=== PATIENT | male | born 1965 | race Caucasian/White ===

== ENCOUNTER 2018-01-28 20:26 | Emergency (ER) | payer OTHER, SELFPAY ==
[2018-01-28 20:27] VITALS: BP 138/91; PULSE 78; RESP 16; TEMP 36.8; O2SAT 99; BMI 22.4
--- NOTE | 2018-01-28 20:45 | RAD_ITS ---
STUDY: X-RAY - RIGHT KNEE REASON FOR EXAM: Male, 52 years old. Pain, unknown injury TECHNIQUE: 3 view(s) of the knee. COMPARISON: None. FINDINGS: Normal visualized distal femur. Normal visualized proximal tibia and fibula. Normal proximal tibiofibular articulation. Normal medial femorotibial compartment. Normal lateral femorotibial compartment. Normal patellofemoral articulation. There is infrapatellar soft tissue swelling. RAD/Knee 3 Views IMPRESSION: Infrapatellar soft tissue swelling. The osseous structures are unremarkable. Electronically Signed: Kobe Guerrero MD at 21:06 EDT , Service support ,
--- NOTE | 2018-01-28 20:58 | US_ITS ---
STUDY: VENOUS DOPPLER ULTRASOUND - RIGHT LOWER EXTREMITY REASON FOR EXAM: Male, 52 years old. Right knee effusion, drain, now presenting with bruising and swelling TECHNIQUE: Ultrasound evaluation of the deep vein system to include gonzáles-scale imaging and compression was performed. Gonzáles-scale imaging and Doppler sonographic evaluation, including duplex spectral analysis and qualitative color flow sonography, was performed. COMPARISON: None. FINDINGS: Common Femoral Vein: Normal compression, spontaneity and augmentation. Normal color Doppler. Common Femoral Vein/Greater Saphenous Junction: Normal compression, no internal echoes are evident. Deep Femoral Vein: Not imaged Femoral Proximal: Normal compression, no internal echoes were noted. Femoral Middle: Normal compression, spontaneity and augmentation. Normal color Doppler. Femoral Distal: Normal compression, no internal echoes were noted. Popliteal Vein: Normal compression, spontaneity and augmentation. Normal color Doppler. Posterior Tibial Vein: Normal compression, no internal echoes were noted. Peroneal Vein: Normal compression, no internal echoes were noted. US/Venous Duplex Imag/Limited/Uni IMPRESSION: There is no evidence of deep venous thrombosis. Electronically Signed: Kobe Guerrero MD at 21:53 EDT , Service support ,
--- NOTE | 2018-01-28 21:24 | ED.DCSUM_ITS ---
- ER Visit Summary Date of Service: 01/28/18 Chief Complaint: Right knee swelling History of Present Illness: The patient is a 52 M with no primary care physician. 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 He is on his knees every day. States that 4 days ago he has a swollen area anterior surface of his right knee. He went to urgent care and they drained it with a needle. The placed him on prednisone 20 mg a day. They wrapped it. He felt that the wrapping was quite tight. He removed this. However, he reports that he noticed a bruise that began there the next day. Patient reports that he is an aching pain that is 3 out of 10 when he is kneeling. It is unchanged by walking. Is 1 out of 10 with elevation. He denies any acute trauma. No personal or family history of DVT. No recent travel. Review of systems is negative. Physical Examination: Vitals: Stable. Afebrile. General: Well-nourished and well-developed. Head: Normocephalic atraumatic. Neck: Supple, no lymphadenopathy. No JVD. Nontender. Cardiovascular: Regular rate and rhythm. No murmurs. Respiratory: No respiratory distress. Clear to auscultation bilaterally. Abdominal: Soft, nontender, nondistended, normal bowel sounds. No guarding, rebound, or peritoneal signs. Back: Nontender. Extremities: Small amount of swelling in the prepatellar bursa. Large amount of swelling in the superficial infrapatellar bursa. He has contusion to the medial side of his right thigh that extends skilled nursing up his thigh. There is light contusion to the anterior surface of his leg distal to his knee. This does extend down into his ankle and there are 2 erythematous areas on the medial sides of this with contusion by them as well. He has full range of motion of his knee with no difficulty or pain. Skin: Normal color, no rash. Neurologic: Alert and oriented ?3. Cranial nerves II through XII are intact. Normal strength and sensation. Psych: Normal affect. Test Results: X-ray shows infrapatellar soft tissue swelling. Doppler was negative. Emergency Department Course and Treatment: I had a prolonged discussion the patient about the likely cause of this. Given the fact that he has essentially no pain with it I suspect that this is really more of a chronic bursitis. I do not think that drainage or injection with steroids is in his best interest. Treatment Plan: Patient will be discharged naproxen. Instructed to wear knee pads. Follow-up with Dr. Howie Skaggs in 1 week if not improving. Return to the emergency department for any worsening symptoms. Disposition: To home in improved and stable condition. Impression: 1. Infrapatellar bursitis. This note was generated with [employer] dictation software. It may contain incorrect words, spelling, and punctuation that were not noted in review of the chart prior to signing ED Disposition - Plan for ED Patient: Chief Complaint: Lower Extremity Injury Instructions: ED Bursitis Prescriptions: Naproxen [Naprosyn] 500 mg PO BID #14 tablet Referrals: Howie Skaggs DO [STAFF PHYSICIAN] - 1 Week if not improving
[2018-01-28 21:43] VITALS: RESP 18
== END 2018-01-28 21:44 | disposition home or self-care (01) ==
LOC: ED 21:35
PROVIDERS: Emergency Provider Emergency Medicine
DX: M70.51 Other bursitis of knee, right knee (principal)
CPT/HCPCS: 73562; 93971; 99282

== ENCOUNTER 2019-12-14 08:38 | Emergency (ER) | payer OTHER, SELFPAY ==
[2019-12-14 08:39] VITALS: BP 151/96; PULSE 86; RESP 16; TEMP 36.1; O2SAT 98; BMI 22.3
--- NOTE | 2019-12-14 08:53 | EKG12_ITS ---
Test Reason : CP Blood Pressure : / mmHG Vent. Rate : 073 BPM Atrial Rate : 073 BPM P-R Int : 108 ms QRS Dur : 082 ms QT Int : 376 ms P-R-T Axes : 065 074 042 degrees QTc Int : 414 ms Sinus rhythm with short CA Otherwise normal ECG Confirmed by TARYN GOMEZ, CHRISTOPHER ([id number]), medical transcription editor CATHERINE CONNELL ([id number]) on 12/15/2019 1:25:42 PM Referred By: VASQUEZ Confirmed By:CHRISTOPHER CENTENO MD
--- NOTE | 2019-12-14 08:57 | ED.VIS.GEN ---
History of Present Illness Chief Complaint: Chest Pain Informant: Patient Onset: Days Context: Gradual Onset Timing: Intermittent Current Severity: Moderate Maximum Severity: Moderate Narrative: The patient is a 54-year-old male who is otherwise healthy and on no daily medications that presents to the emergency department with intermittent substernal chest pain and right arm pain. The patient states his symptoms began about 2 weeks ago. 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 He had no pain while exerting himself, but the next day, he noticed some mild tightness in his chest and in his right arm. He states it seemed to resolve on his own. Over the past week, he is noticed that he is gotten the pain a few more times. It is not brought on with exertion. He states he notices it most when he is at rest. He will feel mildly short of breath when it comes, but denies diaphoresis or nausea. He states if he is actually up and moving, he has no pain. He has no history of coronary vascular disease. He is otherwise been in his normal state of health. Prior similar symptoms: No Recent Illness/Hospitalization: No Past Medical History - Allergies and Home Meds Allergies/Adverse Reactions: Allergies Sulfa (Sulfonamide Antibiotics) Allergy (Verified 12/14/19 08:41) Gladys Primary Care Physician: Care Physician,No Primary [Primary Care Provider] - Prior records reviewed: Yes Past Medical History: None Surgical History: noncontributory Smoking Status: Never smoker Review of Systems General: Denies: Chills, Fever Eyes: Denies: Visual changes - bilaterally, Diplopia ENT: Denies: Rhinorrhea, Sore throat Cardiovascular: Reports: Chest pain. Denies: Palpitations Respiratory: Reports: Dyspnea. Denies: Cough, Dyspnea on exertion Gastrointestinal: Denies: Abdominal pain, Nausea, Vomiting, Diarrhea, Melena, Hematochezia Genitourinary: Denies: Dysuria, Hematuria, Frequency Musculoskeletal: Denies: Back pain, Extremity Pain Skin: Denies: Rash, Wounds Neurological: Denies: Headache, Weakness, Numbness Physical Exam Vital Signs/Narrative: Vital Signs Temp Pulse Resp BP Pulse Ox 12/14/19 08:39 97.0 F L 86 16 151/96 H 98 Inital Vital Signs reviewed: Yes General: Well nourished, Well developed, No Acute Distress Head: Normocephalic, Atraumatic Eyes: Perrl, EOMI ENT: Moist mucous membranes, No rhinorrhea Neck: Supple, Nontender Cardiovascular: Regular rate, Regular rhythm, No murmurs Respiratory: No distress, CTA bilaterally, Chest nontender Abdomen: Soft, Nontender, Nondistended, Normal bowel sounds Back: Nontender, Normal Inspection Extremities: Nontender, No edema Skin: Normal color, No rash Neurological: Alert, Oriented x3, Cranial nerves II-XII grossly intact, Normal Strength, Normal Sensation Psychological: Normal affect, Normal Mood Diagnostic/Tx/Re-eval Chest X-Ray - ED: 2 View, Normal, Heart, Lungs, Mediastinum - Rhythm Strip Rhythm Strip: Sinus Rhythm Rate: 70 Ectopy: None - EKG Initial EKG Interpretation: Sinus Rhythm, No Acute Injury Pattern Prior: Unchanged - Medical Decision Making The patient presents to the emergency department with intermittent chest tightness that is exacerbated by rest and relieved with exertion. It is nonradiating. EKG was obtained on patient arrival. Was sinus rhythm without acute ischemic change. Was unchanged from prior. Screening labs were obtained. The patient's cardiac enzymes were negative. The patient has a heart score of 2. D-dimer was negative. Chest x-ray was unremarkable. After long conversation, the patient was comfortable with plan for repeat troponin testing. I do feel as long as this is negative, the patient can be safely discharged with outpatient follow-up. My suspicion for acute coronary syndrome is very low given the chronicity of his symptoms and the fact that they are relieved with exertion. He is comfortable with this plan of care. Impression 1. Atypical chest pain ED Disposition - Plan for ED Patient: Instructions: ED Chest Pain Atypical Unkn Cause Referrals: Care Physician,No Primary [Primary Care Provider] -
[2019-12-14] MEDS: Aspirin 81 MG TAB.CHEW 324 MG PO (09:03)
--- NOTE | 2019-12-14 09:06 | RAD_ITS ---
STUDY: X-RAY CHEST REASON FOR EXAM: Male, 54 years old. CHEST PAIN, DYSPNEA TECHNIQUE: Single AP portable view of the chest. COMPARISON: None. FINDINGS: EKG electrodes are seen. The lungs are clear and expanded. There is no demonstrated pleural abnormality. Normal size heart. Normal mediastinum and vishnu. Normal visualized pulmonary arteries. Normal visualized aortic arch and descending thoracic aorta. Normal visualized thoracic spine. Normal visualized ribs, clavicles, and shoulders. There is no demonstrated abnormality of the visualized soft tissue structures of the upper abdomen. RAD/Chest 1 View (Portable) IMPRESSION: Normal x-ray examination of the chest. Electronically Signed: Noe Arias, at 9:32 EDT , Service support ,
[2019-12-14 09:11] LABS: Absolute Lymphocyte Count 1.58 X10^3/uL (0.83-4.51); Absolute Neutrophil Count 5.1 X10^3/uL (2.0-7.7); Basophil# 0.04 X10^3/uL; Basophil% 0.5 % (0-1); Eosinophil# 0.09 X10^3/uL; Eosinophils% 1.2 % (0-5); Hematocrit 50.9 % (40-54); Hemoglobin 17.1 g/dL (13.0-16.5); Lymphocyte # 1.58 X10^3/ul (4.0); Lymphocyte % 21.2 % (19-41); Mean Corp Hgb Conc 33.6 g/dL (32-36); Mean Corpuscular Hgb 31.4 pg (27.0-32.0); Mean Corpuscular Volume 93.4 fL (80-94); Mean Platelet Vol. 9.2 fl (6.2-12.0); Monocyte# 0.56 X10^3/uL; Monocyte% 7.5 % (0-10); NRBC Flagged by Analyzer 0 % (0-5); Neutrophil # 5.14 X10^3/uL (2.7-7.7); Neutrophil % 69.2 % (47-70); Platelet Count 306 K/mm3 (150-450); RBC Distribution Width CV 13.2 % (11.6-14.6); RBC Distribution Width SD 44.8 fl (35.1-43.9); Red Blood Count 5.45 M/mm3 (4.6-6.2); White Blood Count 7.4 K/mm3 (4.4-11.0)
[2019-12-14 09:23] LABS: Anion Gap 5 (5-15); BUN 16 mg/dL (7-18); BUN/Creat Ratio 15.1 RATIO (10-20); Chloride 108 mmol/L (98-107); Creatinine, Serum 1.06 mg/dL (0.70-1.30); D-Dimer Quantitative (DVT/PE) <= 0.27 FEU/ug/m (0.27-0.49); EST Glomerular Filtration Rate 77 mL/min (>60); Est Glom Filt Rate - Afr Amer 93 mL/min (>60); Estimated Creatinine Clearance 65.67 ml/min; Glucose 119 mg/dL (74-106); Potassium 3.9 mmol/L (3.5-5.1); Sodium Level 139 mmol/L (136-145)
[2019-12-14 10:38] VITALS: BP 115/84; PULSE 67; RESP 16; O2SAT 99
[2019-12-14 12:22] VITALS: BP 134/86; PULSE 84; RESP 16; O2SAT 99
== END 2019-12-14 12:23 | disposition home or self-care (01) ==
LOC: ED 09:38
PROVIDERS: Emergency Provider Emergency Medicine
DX: R07.89 Other chest pain (principal)
CPT/HCPCS: 71045; 80048; 84484; 85025; 85379; 93005; 99285; A4216

== ENCOUNTER 2020-01-22 17:01 | Emergency (ER) | payer OTHER, SELFPAY ==
[2020-01-22 17:02] VITALS: BP 153/83; PULSE 78; RESP 16; TEMP 36.6; O2SAT 99; BMI 20.9
--- NOTE | 2020-01-22 17:38 | ED.DCSUM_ITS ---
- ER Visit Summary Date of Service: 01/22/20 Chief Complaint: Shortness of breath History of Present Illness: The patient is a 54 M who presents with shortness of breath that has been waxing and waning over the past 5 weeks. Patient was seen here approximately 1 month ago and had chest x-ray, EKG, and lab work which were all normal. Patient states that sometimes it is worse when he exerts himself but other times it comes on at rest. Patient denies any chest pain. Patient denies any nausea or vomiting. Patient denies any fevers or chills. Patient denies any rhinorrhea or sore throat. Physical Examination: Vital signs are stable. Patient is afebrile. Patient is in no acute distress. Oral mucosa is pink and moist. Neck is supple. Trachea is midline. There is no JVD noted. Heart was regular rate and rhythm. Lungs are clear and equal bilaterally. Abdomen is soft. Bowel sounds are normal. There is no tenderness. There is no rebound or guarding noted. Skin is warm dry. Cranial nerves II through XII are intact. There are no focal motor or sensory deficits noted. Extremities are intact. There is no calf tenderness or edema. Test Results: CBC and comprehensive metabolic profile were obtained and were essentially within normal limits. D-dimer was normal. Chest x-ray was obtained. There is no acute cardiopulmonary process. This was interpreted by the radiologist and reviewed by myself. Emergency Department Course and Treatment: Patient was given an albuterol inhaler and given his first dose here. Patient was instructed to take this as needed. Patient was referred to a primary care physician for follow-up care in 3 to 5 days. Patient understood and was agreeable with the plan. All questions were answered. Disposition: Discharge home Impression: Dyspnea This note was generated with [employer] dictation software. It may contain incorrect words, spelling, and punctuation that were not noted in review of the chart prior to signing ED Disposition - Plan for ED Patient: Disposition: Home or Assisted Living Diagnosis: Dyspnea Instructions: ED Dyspnea Referrals: Care Physician,No Primary [Primary Care Provider] - Brianda Herrera MD [STAFF PHYSICIAN] - 5-7 Days
[2020-01-22 18:03] LABS: Absolute Lymphocyte Count 1.86 X10^3/uL (0.83-4.51); Absolute Neutrophil Count 4.6 X10^3/uL (2.0-7.7); Basophil# 0.04 X10^3/uL; Basophil% 0.5 % (0-1); Eosinophil# 0.07 X10^3/uL; Hematocrit 46.1 % (40-54); Hemoglobin 15.5 g/dL (13.0-16.5); Lymphocyte # 1.86 X10^3/ul (4.0); Lymphocyte % 25.4 % (19-41); Mean Corp Hgb Conc 33.6 g/dL (32-36); Mean Corpuscular Hgb 31.3 pg (27.0-32.0); Mean Corpuscular Volume 92.9 fL (80-94); Mean Platelet Vol. 9.3 fl (6.2-12.0); Monocyte# 0.74 X10^3/uL; Monocyte% 10.1 % (0-10); NRBC Flagged by Analyzer 0 % (0-5); Neutrophil # 4.59 X10^3/uL (2.7-7.7); Neutrophil % 62.7 % (47-70); Platelet Count 311 K/mm3 (150-450); RBC Distribution Width SD 44.2 fl (35.1-43.9); Red Blood Count 4.96 M/mm3 (4.6-6.2); White Blood Count 7.3 K/mm3 (4.4-11.0)
--- NOTE | 2020-01-22 18:12 | RAD_ITS ---
STUDY: X-RAY CHEST REASON FOR EXAM: Male, 54 years old. intermittent SOB x 5 weeks TECHNIQUE: Single frontal view of the chest. COMPARISON: None. FINDINGS: The lungs are clear and expanded. There is no demonstrated pleural abnormality. Normal size heart. Normal mediastinum and vishnu. Normal visualized pulmonary arteries. Normal visualized aortic arch and descending thoracic aorta. Normal visualized thoracic spine. Normal visualized ribs, clavicles, and shoulders. There is no demonstrated abnormality of the visualized soft tissue structures of the upper abdomen. RAD/Chest 1 View (Portable) IMPRESSION: Normal x-ray examination of the chest. Electronically Signed: Richy Garcia MD at 18:31 EDT Tel , Service support ,
[2020-01-22 18:16] LABS: D-Dimer Quantitative (DVT/PE) <= 0.27 FEU/ug/m (0.27-0.49)
[2020-01-22 19:25] LABS: ALB/GLOB Ratio 1.8 RATIO (0.9-2.4); AST(SGOT) 14 U/L (15-37); Alanine Aminotransfer ALT/SGPT 21 U/L (16-61); Albumin, Serum 4.4 g/dL (3.2-5.0); Alkaline Phosphatase 72 U/L (45-117); Anion Gap 6 (5-15); BUN 11 mg/dL (7-18); BUN/Creat Ratio 12.8 RATIO (10-20); Calcium,Total 10.1 mg/dL (8.5-10.1); Chloride 107 mmol/L (98-107); Creatinine, Serum 0.86 mg/dL (0.70-1.30); EST Glomerular Filtration Rate 98 mL/min (>60); Est Glom Filt Rate - Afr Amer 119 mL/min (>60); Estimated Creatinine Clearance 75.96 ml/min; Globulin 2.5 g/dL (2.2-4.2); Glucose 94 mg/dL (74-106); Potassium 4.3 mmol/L (3.5-5.1); Protein, Total 6.9 g/dL (6.4-8.2); Sodium Level 140 mmol/L (136-145)
[2020-01-22 19:49] VITALS: BP 129/92; PULSE 66; RESP 17; O2SAT 98
== END 2020-01-22 19:50 | disposition home or self-care (01) ==
PROVIDERS: Emergency Provider Emergency Medicine
DX: R06.00 Dyspnea, unspecified (principal)
CPT/HCPCS: 71045; 80053; 85025; 85379; 94640; 99283; A4216